=== PATIENT | female | born 1940 | race Caucasian/White ===

== ENCOUNTER 2017-05-01 10:49 | Inpatient (IN) | payer MEDICARE ==
[2017-05-01] MEDS ORDERED: Clindamycin/D5W 900 mg/50 ml Premix Bag ONE (12:18)
[2017-05-01 12:37] LABS: #Eosinphils 0.1 thou/uL (0.0-0.7); #Lymphocytes 1.7 thou/uL (1.20-3.40); #Monocytes 0.8 thou/uL (0.11-0.59); #Neutrophils 12.5 thou/uL (1.40-6.50); %Basophils 0.2 % (0.0-1.0); %Eosinophils 0.6 % (0.0-10.0); %Lymphocytes 11.1 % (21.0-51.0); %Monocytes 5.1 % (0.0-10.0); Hematocrit 29.9 % (36.0-47.0); Mean Platelet Volume 8.1 fL (7.4-10.4); Red Blood Cell (RBC) Count 3.18 mill/uL (4.20-5.40); White Blood Cell (WBC) Count 15.1 thou/uL (4.8-10.8)
[2017-05-01] MEDS ORDERED: Sodium Chloride 0.9% 1,000 ML IV SCH (13:00)
[2017-05-01] MEDS ORDERED: Acetaminophen 325 MG TAB PO PRN ×2 (13:00→16:19)
[2017-05-01] MEDS ORDERED: Ondansetron ODT 4 MG TAB SL PRN (13:00)
[2017-05-01] MEDS ORDERED: Ondansetron HCl/PF 4 MG/2 ML Vial IVP PRN ×2 (13:00→16:19)
[2017-05-01 13:02] LABS: ALT (SGPT) 14 U/L (8-55); AST (SGOT) 15 U/L (5-34); Alkaline Phosphatase 54 U/L (40-150); Anion Gap 13 mmol/L (10-20); BUN (Urea Nitrogen) 67 mg/dL (9.8-20.1); Bilirubin, Total 0.2 mg/dL (0.2-1.2); Calc. Creatinine Clearance 0 mL/min (70-130); Calcium 9.7 mg/dL (7.8-10.44); Carbon Dioxide 27 mmol/L (23-31); Chloride 100 mmol/L (98-107); Estimated GFR-MDRD 17; Globulin 3.2 g/dL (2.4-3.5); Lipase 40 U/L (8-78); Protein, Total 6.5 g/dL (6.0-8.3)
--- NOTE | 2017-05-01 13:11 | RAD ---
AP CHEST: History: 76-year-old with staph infection. FINDINGS: EKG leads are seen over the chest. Coronary arterial stents are seen. Calcification of the aorta is noted. The lungs are well aerated. No evidence of active intrathoracic disease seen. No evidence of effusions, pneumonia, or pneumothorax is seen. IMPRESSION: Unremarkable AP chest. POS: [facility]
[2017-05-01] MEDS ORDERED: Lidocaine 1% PF 5 ML VIAL ONE (13:30)
[2017-05-01 14:20] LABS: Bilirubin Negative (Negative); Glucose, Urine (Dipstick) Negative (Negative)
[2017-05-01 14:21] LABS: Blood, Urine Moderate (Negative); Ketone, Urine Negative (Negative); Nitrite Negative (Negative); Protein, Urine (Dipstick) Negative (Neg-Trace); Urobilinogen 0.2 mg/dL (0.2-1.0)
[2017-05-01 14:32] LABS: Bacteria/HPF None Seen HPF (None Seen); Hyaline Casts/LPF 0-3 HYALINE CAST LPF (0-3 Hyaline); Squamous Epithelial None Seen HPF (0-3); WBC/HPF 0-3 HPF (0-3)
--- NOTE | 2017-05-01 14:53 | HP ---
PRIMARY CARE PHYSICIAN: Dr. Suzanne Otero. REASON FOR ADMISSION: Sepsis, hypotension, buttock abscess. HISTORY OF PRESENT ILLNESS: A 76-year-old female who has underlying history of COPD, chronic respir atory failure on home oxygen, chronic systolic heart failure with last EF 15%-20%, who presented to the emergency room with complaint of pain in her buttock. The patient reports that she noticed swel ling in her buttock on the right side about a week ago. Initially, it was less tender and she ignor ed, but her pain kept getting worse day by day basis and it has gotten increased in size of a lemon and she was also feeling hot and feverish at home and that is why she decided to come to the emergen cy room for evaluation today. In emergency room today, patient had bedside I\T\D done and purulent material was drained. The ga ent was also having surrounding erythema and tenderness. The patient was having severe pain on the right buttock with erythema when she presented to the ER. Initially, the patient was hypotensive. Her lowest blood pressure in the emergency room was 81/37. She is afebrile. Patient denies any UTI symptoms. She denies any chest pain, palpitations, shortn ess of breath. Patient reports that she is chronically short of breath, but that has not changed. Patient reports that how this started she does not have any clue. She does not normally sit down in one place. Patient walks around with a walker. She does use oxygen all the time. She lives at [facility] by herself. In the emergency room, patient expressed her wish to be DNR when I discussed with he r about code status. When she cannot make decision, then her daughter and son can make decision who lives in [facility]. When she presented to emergency room, her pain in buttock was about 7/10 in intensity, but after I\T \D her pain reduced to 2/10. REVIEW OF SYSTEMS: The following complete review of systems was negative, unless otherwise mentione d in the HPI or below: Constitutional: Weight loss or gain, ability to conduct usual activities. Skin: Rash, itching. Eyes: Double vision, pain. ENT/Mouth: Nose bleeding, neck stiffness, pain, tenderness. Cardiovascular: Palpitations, dyspnea on exertion, orthopnea. Respiratory: Shortness of breath, wheezing, cough, hemoptysis, fever or night sweats. Gastrointestinal: Poor appetite, abdominal pain, heartburn, nausea, vomiting, constipation, or diar lora. Genitourinary: Urgency, frequency, dysuria, nocturia. Musculoskeletal: Pain, swelling. Neurologic/Psychiatric: Anxiety, depression. Allergy/Immunologic: Skin rash, bleeding tendency. Please see my HPI for pertinent positive and negative. All other review of systems reviewed and neg ative except as mentioned in the HPI. PAST MEDICAL HISTORY: Chronic respiratory failure on home oxygen, severe COPD, chronic systolic hea rt failure with EF 15% to 20% as per last echo, coronary artery disease with stent, history of hyper tension, history of pulmonary nodule, history of TIA, and senile dementia. PAST SURGICAL HISTORY: Cataract surgery, bilateral tubal ligation, cardiac catheterization with stacia nt, status post I\T\D for buttock abscess. PAST PSYCHIATRIC HISTORY: Reviewed and negative. SOCIAL HISTORY: Patient is an ex-smoker. She quit smoking more than 10 years ago. She denies any alcohol abuse. She denies any other illicit drug abuse. She lives at home alone by herself in [facility]. The patient's daughter and son lives around. She does have help at home who checks on her daily basis. FAMILY HISTORY: Hypertension and coronary artery disease runs among several family members. ALLERGIES: Patient is not tolerating PENICILLIN, ROCEPHIN and TRAMADOL. CURRENT HOME MEDICATIONS: This patient does not have any medication with her at this point when she presented to emergency room, so unable to verify her home medications, but based on our hospital re cord, the patient is on following medications: Ventolin HFA one puff q.4 hourly p.r.n., aspirin 325 mg p.o. daily, Lipitor 40 mg p.o. at bedtime, calcium with vitamin D 1 tablet p.o. daily, Coreg 6.2 5 mg p.o. b.i.d., Plavix 75 mg p.o. daily, Aricept 5 mg p.o. at bedtime, Advair 2 puffs inhalation b .i.d., folic acid 1 tablet daily, Lasix 20 mg p.o. daily, lisinopril 2.5 mg p.o. daily, Protonix 40 mg p.o. daily, Aldactone 25 mg p.o. daily, and Zanaflex 2 mg p.o. at bedtime. EMERGENCY ROOM COURSE: Patient is given vancomycin, clindamycin, and IV fluid. PHYSICAL EXAMINATION: VITAL SIGNS: Blood pressure lowest in the emergency room 81/37, pulse 70, respiratory rate 22, temp erature 97.7, saturation 98% on room air, weight 56.7 kilograms. GENERAL: Patient is currently alert, awake, no obvious acute distress. HEAD: Normocephalic, atraumatic. EYES: Pupils round, reactive to light. Extraocular muscle intact. ENT: Oropharynx within normal limits. Moist mucous membranes. No oral lesions. No pharyngeal glenn thema, no exudate. NECK: Supple. Range of motion is normal. No meningeal signs of irritation. LUNGS: Air entry reduced, but no rales, no wheeze. No accessory muscles of respiration in use. CARDIAC: S1, S2 regular. No significant murmur elicited, no gallop, no rub. ABDOMEN: Soft, bowel sounds present, nontender, nondistended. No organomegaly, no mass, no suprapu bic tenderness. No peritoneal sign. BACK: Examination unremarkable. No CVA tenderness. EXTREMITIES: Upper extremity passive movements of all joints are normal. Lower extremity, no obvio us edema noted. Good peripheral pulsation. SKIN: The patient does have multiple bruise on her skin and I also found furuncle with abscess in t he right gluteus with warm and surrounding tenderness. NEUROLOGIC: Patient is moving all four limbs, plantar bilateral flexor. No focal neurological defi cit noted. PSYCHIATRIC: Normal affect. IMAGING AND LABORATORY DATA: Chest x-ray based on my review, no acute cardiopulmonary process. CBC : WBC 15.1, hemoglobin 9.8, platelet 270 with a left shift. BMP: Sodium 134, potassium 5.9, chlor london 100, carbon dioxide 27, anion gap 13, BUN 67, creatinine 2.75, glucose 102, and calcium 9.7. LF T: AST 15, ALT 14, alkaline phosphatase 54, albumin 3.3, lipase 40. ASSESSMENT AND PLAN/IMPRESSION: 1. Sepsis with acute organ dysfunction. The patient does have leukocytosis with a left shift. She does have buttock abscess with cellulitis of buttock. The patient does have hypotension and at the same time, patient has renal failure. At this point, we are suspecting Staphylococcus infection. The patient will have clindamycin and vancomycin. The patient will be admitted in IMCU for close mo nitoring. 2. Hypotension. Patient's blood pressure is running on lower side. At this point, patient's blood pressure is moderate in the emergency room with IV fluid. We will give her cautious IV fluid to pr event any fluid overload. At this point, her x-ray does not show any fluid overload status and we w ill continue with IV fluid. If needed, we will consider vasopressor support. 3. Acute kidney failure, likely due to sepsis and volume depletion. She also has severe cardiomyop athy that also contributes to her cardiorenal syndrome. We will obtain a renal ultrasound. We will check urinalysis, urine sodium, creatinine and protein. We will consult Nephrology evaluation. 4. Hyperkalemia. We will monitor potassium. At this point, the patient is taking Aldactone; that medication as well as lisinopril will be kept on hold, we will repeat potassium again tomorrow. Nep hrology has already consulted. 5. Buttock abscess. This patient has predominantly right buttock abscess. That was I\T\D done in the emergency room. Wound care team will be consulted. Patient will be on vancomycin and clindamyc in. We will monitor clinical response. We will control her pain. 6. History of systolic heart failure. The patient currently appears to be euvolemic. Patient's la st echo was in 2013 and that is why we will repeat echocardiography during this admission to see eje ction fraction and other structural abnormality. This patient is not on any beta araseli medicine o r MANOJ inhibitor or ARB because of renal failure and hypotension. 7. Chronic obstructive pulmonary disease without any exacerbation. We will continue to treat with DuoNeb q.6 hourly and Dulera 2 puffs inhalation b.i.d. 8. Chronic respiratory failure with home oxygen. We will continue oxygen to keep saturation above 92%. 9. Coronary artery disease with stent. We will continue with aspirin 81 mg p.o. daily and Plavix 7 5 mg p.o. daily. 10. Alzheimer's dementia. We will continue Aricept 5 mg p.o. at bedtime. 11. Dyslipidemia. We will continue Lipitor 40 mg p.o. at bedtime. 12. Anemia, normocytic normochromic. We will continue folic acid 1 mg p.o. daily, vitamin B12 1000 mcg p.o. daily and ferrous sulfate 325 mg p.o. daily. 13. Protein calorie malnutrition. The patient will be given supplements, Ensure b.i.d. and Gume b .i.d. to promote the wound healing. 14. Deep venous thrombosis prophylaxis, Lovenox 30 mg subcutaneously daily. 15. Gastrointestinal prophylaxis, Pepcid 20 mg p.o. daily. CODE STATUS: I spoke with the patient who can make decision by herself and she clearcutly said to morenita zuñiga that she does not want any kind of heroic measure including intubation and CPR in case of cardiopu lmonary arrest, but she wanted to be treated medically and she requested DNR and that is ordered in the computer. Disposition plan based on clinical course. This patient may need PT, OT before discharge, home vers us intermediate home placement. If this patient remains stable in the IMCU overnight, then we wi ll consider transferring her to medical stress telemetry floor based on clinical course.
[2017-05-01 15:28] VITALS: BMI 23.0
[2017-05-01] MEDS ORDERED: Ondansetron ODT 4 MG TAB PO PRN (16:19)
[2017-05-01] MEDS ORDERED: Diabetic Tussin 200 MG/10 ML UDCUP PO PRN (16:19)
[2017-05-01] MEDS ORDERED: Artificial Tears 18 DROP/0.9 ML EA EYE PRN (16:19)
[2017-05-01] MEDS ORDERED: Mag-Al 1200 mg/1200 mg/30 ML UDCUP PO PRN (16:19)
[2017-05-01] MEDS ORDERED: Eucerin (Mineral Oil/Petrolatum,White) 30 gm Jar TOP PRN (16:19)
[2017-05-01] MEDS ORDERED: Sodium Chloride 0.65% Nasal 44 ML BOT EA NARE PRN (16:19)
[2017-05-01] MEDS ORDERED: Milk Of Magnesia 30 ML UDCUP PO PRN (16:19)
[2017-05-01] MEDS ORDERED: Loperamide HCl 2 MG CAP PO PRN (16:19)
[2017-05-01] MEDS ORDERED: Senokot 8.6 MG TAB PO PRN (16:19)
[2017-05-01] MEDS ORDERED: VANCOMYCIN IVPB PRN (16:19)
[2017-05-01 18:32] LABS: Sodium, Urine 112 mmol/L (Not Available)
[2017-05-01] MEDS: Mometasone/Formoterol 120 PUFF INHALER INH SCH (19:15)
--- NOTE | 2017-05-01 19:16 | ULT ---
BILATERAL RENAL ULTRASOUND: 05/01/17 COMPARISON: None. HISTORY: Acute kidney injury. TECHNIQUE: Multiplanar alexis scale and color doppler images were obtained in a bilateral renal ultrasound. FINDINGS: There appears to be cortical thinning on the right. There may be mild cortical thinning on the left. There is a small nonshadowing echogenic focus in the left kidney measuring 6 mm in greatest dimensi on which could potentially represent a nonobstructing calcification. There is no evidence of hydrone phrosis. The kidneys measure 11.1 and 10.1 cm in length on the right and left, respectively. Limited visualization of the urinary bladder is unremarkable. IMPRESSION: 1. Cortical thinning may be secondary to chronic renal disease. 2. A possible nonshadowing left renal calcification. POS: [facility]
[2017-05-01] MEDS: Sodium Chloride 0.9% 1,000 ML IV SCH (19:31)
[2017-05-01] MEDS: Clindamycin/D5W 600 MG in Premix Bag 1 BAG IVPB SCH (19:32)
[2017-05-01] MEDS: Atorvastatin Calcium 40 MG TAB PO SCH (22:13)
[2017-05-02] MEDS: Clindamycin/D5W 600 MG in Premix Bag 1 BAG IVPB SCH ×4 (01:27→18:11)
[2017-05-02 06:22] LABS: #Eosinphils 0.1 thou/uL (0.0-0.7); #Lymphocytes 1.3 thou/uL (1.20-3.40); #Monocytes 0.4 thou/uL (0.11-0.59); #Neutrophils 10.1 thou/uL (1.40-6.50); %Eosinophils 0.6 % (0.0-10.0); %Lymphocytes 11.3 % (21.0-51.0); %Monocytes 3.3 % (0.0-10.0); Hematocrit 29.3 % (36.0-47.0); Mean Platelet Volume 8.5 fL (7.4-10.4); Red Blood Cell (RBC) Count 3.15 mill/uL (4.20-5.40); White Blood Cell (WBC) Count 11.9 thou/uL (4.8-10.8)
[2017-05-02 06:50] LABS: ALT (SGPT) 15 U/L (8-55); AST (SGOT) 18 U/L (5-34); Alkaline Phosphatase 54 U/L (40-150); Anion Gap 17 mmol/L (10-20); BUN (Urea Nitrogen) 54 mg/dL (9.8-20.1); Bilirubin, Total 0.3 mg/dL (0.2-1.2); Calc. Creatinine Clearance 24 mL/min (70-130); Calcium 9.3 mg/dL (7.8-10.44); Carbon Dioxide 19 mmol/L (23-31); Chloride 104 mmol/L (98-107); Estimated GFR-MDRD 26; Globulin 3.1 g/dL (2.4-3.5); Protein, Total 6.5 g/dL (6.0-8.3)
--- NOTE | 2017-05-02 06:51 | CON ---
DATE OF CONSULTATION: 05/01/2017 NEPHROLOGY CONSULTATION CONSULTING PHYSICIAN: Dr. Mcdonald. REASON FOR CONSULTATION: Sepsis, hypotension, and acute kidney injury. REASON FOR ADMISSION: Buttock abscess and pain. HISTORY OF PRESENT ILLNESS: This is a 76-year-old female with history of COPD, CHF, who came to the hospital with the above symptoms and found to have acute kidney injury with elevated creatinine of 2.75, last creatinine was 1.4 on 04/03/2017. Patient is complaining of back pain. She was hypotens elias and was given fluids. She does have congestive heart failure with poor EF too. No fever or chi lls. No shortness of breath, chest pain, or palpitations. No nausea or vomiting reported. PAST MEDICAL HISTORY: Positive for CHF, COPD, pulmonary nodule, TIA, dementia, hypotension. PAST SURGICAL HISTORY: Cataract surgery, tubal ligation, cardiac catheterization, and I\T\D. MEDICATIONS: Include Ventolin, aspirin, Lipitor, calcium, vitamin D, Coreg, Plavix, Aricept, Advair , folic acid, Lasix, lisinopril, Protonix, Aldactone, and Zanaflex. ALLERGIES: To PENICILLIN, ROCEPHIN, and TRAMADOL. FAMILY HISTORY: No history of any kidney disease. SOCIAL HISTORY: She is an ex-smoker. No alcohol, illicit drug abuse reported. REVIEW OF SYSTEMS: The following complete review of systems was negative, unless otherwise mentione d in the HPI or below: Constitutional: Weight loss or gain, ability to conduct usual activities. Skin: Rash, itching. Eyes: Double vision, pain. ENT/Mouth: Nose bleeding, neck stiffness, pain, tenderness. Cardiovascular: Palpitations, dyspnea on exertion, orthopnea. Respiratory: Shortness of breath, wheezing, cough, hemoptysis, fever or night sweats. Gastrointestinal: Poor appetite, abdominal pain, heartburn, nausea, vomiting, constipation, or diar lora. Genitourinary: Urgency, frequency, dysuria, nocturia. Musculoskeletal: Pain, swelling. Neurologic/Psychiatric: Anxiety, depression. Allergy/Immunologic: Skin rash, bleeding tendency. PHYSICAL EXAMINATION: GENERAL: This is a well-built elderly female, in no apparent distress. VITAL SIGNS: Temperature 98.0, pulse 72, respiratory rate 18, blood pressure 100/41. HEENT: Atraumatic, normocephalic. Oral mucosa is dry. NECK: Supple, no masses. CARDIOVASCULAR: S1 and S2 heard. Rate and rhythm regular. RESPIRATORY: Clear. GASTROINTESTINAL: Abdomen is soft. MUSCULOSKELETAL: No tenderness. No edema. DERMATOLOGIC: skin rash. NEUROLOGIC: Alert and awake. PSYCHIATRIC: Mood and affect normal. LABORATORY DATA: Hemoglobin is 9.8. Potassium is 5.9, BUN 67, creatinine is 2.7. ASSESSMENT AND PLAN: 1. Acute kidney injury most likely from sepsis versus volume depletion and diuretics and medication s. Agree with holding the nephrotoxic medications including diuretics. 2. Hyperkalemia, most likely from medications and limit potassium in the diet and continue hydratio n as tolerated. Patient does have poor EF. 3. Anemia, rule out bleed. 4. Edema, uncontrolled. 5. Hypotension, stable. 6. Continue supportive care, avoid nephrotoxins. No acute indication for dialysis. Renally dose a ll the medicines and we will follow. I will recommend changing Lovenox to heparin if tolerated and monitor vancomycin level closely and avoid the dose if level is more than 20. We will follow. Thank you for the consult.
[2017-05-02] MEDS: Mometasone/Formoterol 120 PUFF INHALER INH SCH ×2 (07:35→18:20)
[2017-05-02] MEDS: Ferrous Sulfate 325 MG TAB PO SCH (09:15)
[2017-05-02] MEDS: Famotidine 20 MG TAB PO SCH (09:16)
[2017-05-02] MEDS: Folic Acid 1 MG TAB PO SCH (09:16)
[2017-05-02] MEDS: Clopidogrel Bisulfate 75 MG TAB PO SCH (09:16)
[2017-05-02] MEDS: Cyanocobalamin (Vitamin B-12) 1,000 MCG TAB PO SCH (09:16)
[2017-05-02] MEDS: Enoxaparin Sodium 30 MG/0.3 ML SYRINGE SC SCH (09:18)
[2017-05-02] MEDS ORDERED: Furosemide 20 MG/2 ML VIAL SLOW IVP SCH (09:30)
[2017-05-02] MEDS: Sodium Chloride 0.9% 1,000 ML IV SCH ×3 (10:34→16:10)
--- NOTE | 2017-05-02 12:03 | PDOC.PN ---
- Subjective Encounter Start Date: 05/02/17 Encounter Start Time: 08:30 Pt seen and examined on rounds earlier this morning. Chart reviewed in its entriety. This si my first visit with this patient. NO F/C, no N/V/D/C, no CP or SOb, breeathing at baseline admitted overnight for sepsis, buttock asbess on left I&D's. Has anothe jennifer the right, but not opened. Cultures growing staph, abscess and blood. 1/2 with s. aureus, other BCx with likely CoNS. 10 point ROS perofrme dnad neg for all except as above. Buttock abscess examined in the presence of a female RN dictionary editor - Objective Resuscitation Status: Resuscitation Status DNR:Do Not Resuscitate MAR Reviewed: Yes Vital Signs & Weight: Vital Signs (12 hours) Temp Pulse Resp BP Pulse Ox 05/02/17 08:02 97.7 F 89 16 97 05/02/17 07:34 89 16 97 05/02/17 07:07 97.6 F 84 20 121/54 L 100 05/02/17 04:00 97.7 F 76 20 101/42 L 100 05/02/17 01:17 100 05/02/17 01:16 100 Weight Weight 130 lb 1.6 oz I&O: 05/01/17 05/02/17 05/03/17 06:59 06:59 06:59 Intake Total 450 Output Total 1000 Balance -550 Result Diagrams: 05/02/17 05:17 05/02/17 05:17 Radiology Reviewed by me: Yes EKG Reviewed by me: Yes Phys Exam - Physical Examination Constitutional: NAD HEENT: PERRLA, moist MMs, sclera anicteric, oral pharynx no lesions Neck: no nodes, no JVD, supple, full ROM Respiratory: no wheezing, no rales, no rhonchi, clear to auscultation bilateral Cardiovascular: RRR, no significant murmur, no rub Gastrointestinal: soft, non-tender, no distention, positive bowel sounds Musculoskeletal: pulses present, edema present Neurological: non-focal, normal sensation, moves all 4 limbs Lymphatic: no nodes Psychiatric: normal affect, A&O x 3 Skin: no rash, normal turgor, cap refill <2 seconds Deviation from normal: left buttock abscess with purplish discoloration 1.5cm in radius at I&D st -: Right buttock wuth unstageable ulcer, ? abscess Dx/Plan (1) Pressure ulcer Code(s): L89.90 - PRESSURE ULCER OF UNSPECIFIED SITE, UNSPECIFIED STAGE Status : Acute Qualifiers: Pressure ulcer location: buttock Pressure ulcer stage: unstageable Laterality: right Qualified Code(s): L89.310 - Pressure ulcer of right buttock , unstageable Comment: warm compreses, watch for drainage, WC nurse consulted (2) MSSA (methicillin susceptible Staphylococcus aureus) septicemia Code(s): A41.01 - SEPSIS DUE TO METHICILLIN SUSCEPTIBLE STAPHYLOCOCCUS AUREUS Status: Acute Comment: Abscess and BCx 1/2 sets positive. CCM with Vanc/ clinda for now (3) MSSA (methicillin susceptible Staphylococcus aureus) infection Code(s): A49.01 - METHICILLIN SUSCEP STAPH INFECTION, UNSP SITE Status: Acute (4) Left buttock abscess Code(s): L02.31 - CUTANEOUS ABSCESS OF BUTTOCK Status: Acute Comment: S/P I& D in ER. awaiting final culture and sensitivities (5) Respiratory failure Code(s): J96.90 - RESPIRATORY FAILURE, UNSP, UNSP W HYPOXIA OR HYPERCAPNIA Status: Acute Qualifiers: Chronicity: acute on chronic Respiratory failure complication: hypoxia Qualified Code(s): J96.21 - Acute and chronic respiratory failure with hypoxia (6) HTN (hypertension) Code(s): I10 - ESSENTIAL (PRIMARY) HYPERTENSION Status: Chronic Qualifiers: Hypertension type: essential hypertension Qualified Code(s): I10 - Essential (primary) hypertension (7) Hyperlipidemia Code(s): E78.5 - HYPERLIPIDEMIA, UNSPECIFIED Status: Chronic Qualifiers: Hyperlipidemia type: unspecified Qualified Code(s): E78.5 - Hyperlipidemia , unspecified (8) CAD (coronary artery disease) Code(s): I25.10 - ATHSCL HEART DISEASE OF [place] CORONARY ARTERY W/O ANG PCTRS Status: Chronic Qualifiers: Coronary Disease-Associated Artery/Lesion type: unspecified vessel or lesion type [place] vs. transplanted heart: [place] heart Associated angina: without angina Qualified Code(s): I25.10 - Atherosclerotic heart disease of [place] coronary artery without angina pectoris (9) Chronic respiratory failure with hypoxia Code(s): J96.11 - CHRONIC RESPIRATORY FAILURE WITH HYPOXIA Status: Chronic (10) Chronic systolic (congestive) heart failure Code(s): I50.22 - CHRONIC SYSTOLIC (CONGESTIVE) HEART FAILURE Status: Chronic Comment: compensated, EF 15-20% - Plan cont current plan of care, continue antibiotics, PT/OT * .
--- NOTE | 2017-05-02 14:07 | PQF ---
Date: 05-02-17 ATTN: DR. ALEXYS BUSH Please layne a box (or boxes) below if a more specific term indicating a diagnosis and/or acuity level for this condition can be identified. Please exercise your independent, professional judgment in responding to the clarification form. Clinical indicators are provided on the bottom of this form for your review. Thank you. [ x ] Protein Calorie Malnutrition: [ x ] Mild [ ] Moderate [ ] Severe [ ] Unspecified [ ] Other Malnutrition (please specify) __ [ ] No diagnosis of Malnutrition [ ] Does not apply to this patient [ ] Unable to determine [ ] Other diagnosis: [ ] Present on Admission (POA); [ ] Yes [ ] No [ ] Unable to determine BMI Less than 19 Under weight 19 - 24.9 Healthy 25.0 - 29.9 Slightly Overweight 30.0 - 34.9 Obese 35.0 - 39.9 Severely Obese 40.0 and Over Morbidly Obese Values Commonly Used to Grade the Severity of Protein-Energy Malnutrition Measurement Normal Mild Moderate Severe Normal weight (%) 47873 8590 7585 < 75 Body mass index 1924 1818.9 1617.9 < 16 Serum albumin (g/dL) 3.55.0 3.13.4 2.43.0 < 2.4 Serum transferrin (mg/dL) 696342 363799 850846 < 150 Total lymphocyte count (per mm3) [id number] [id number] 800 1500 < 800 Delayed hypersensitivity index 2 2 1 0 From The Merck Manual of Diagnosis and Therapy, Edition 18, edited by Layne Putnam. Copyright 2006 by [employer], [place]. Available at : http://www.merck.com/mmpe/sec01/ch002/xs651x.html. Accessed 02/26/07. The following CLINICAL INDICATORS - Signs / Symptoms are documented in the medical record: Documentation reflects BMI of 23.0 H&P: PROTEIN CALORIE MALNUTRITION PN DR. ALEXYS BUSH ON 05-01-17: ACUTE PRESSURE ULCER OF RIGHT BUTTOCK, UNSTAGEABLE RISKS: H&P: HX OF SEVERE COPD, SENILE DEMENTIA, ALZHEIMER'S PN DR. ALEXYS BUSH ON 05-01-17: ACUTE PRESSURE ULCER OF RIGHT BUTTOCK, UNSTAGEABLE TREATMENT: HEART HEALTHY DIET, SUPLENA DAILY, MARY RENAL BID (This form is maintained as a part of the permanent medical record) 2014 [employer] All Rights Reserved JUAN [email or web address] Office: [phone] [facility] CENTERFrancisco Javier
[2017-05-02 14:17] LABS: #Lymphocytes 0.7 thou/uL (1.20-3.40); #Monocytes 0.2 thou/uL (0.11-0.59); #Neutrophils 7.9 thou/uL (1.40-6.50); %Basophils 0.2 % (0.0-1.0); %Eosinophils 0.4 % (0.0-10.0); %Lymphocytes 7.3 % (21.0-51.0); %Monocytes 2.5 % (0.0-10.0); Hematocrit 25.7 % (36.0-47.0); Mean Platelet Volume 8.1 fL (7.4-10.4); Red Blood Cell (RBC) Count 2.73 mill/uL (4.20-5.40); White Blood Cell (WBC) Count 8.8 thou/uL (4.8-10.8)
--- NOTE | 2017-05-02 14:34 | CON ---
DATE OF CONSULTATION: 05/02/2017 REASON FOR CONSULTATION: Coronary artery disease, history of heart failure, and sepsis. HISTORY OF PRESENT ILLNESS: Ms. Sarah Rose is a very pleasant 76-year-old woman with COPD, histo ry of congestive heart failure, history of coronary artery disease, admitted with sepsis and renal f ailure. Ms. Rose is 76 years of age; from a cardiac standpoint, she presented with difficulty breathing in 2013, looked like a lot of the problem with COPD, but it looked like there may have been a cardiac component as well. Echocardiogram showed severely depressed left ventricular function. She underwe nt cardiac catheterization and underwent stent implantation in the right coronary artery. She had a stent placed in the right coronary artery. Later that evening, she had some recurrent discomfort, took her back to the laboratory animal facility supervisor, look like with an edge dissection, and another stent was placed. She has done well from a cardiac standpoint since then. The stent was a 3.5 x32 stent and other 3.5 x2 0 stent post-dilated to 4 mm and later a 4.0 x 12 stent was overlapped. The patient's ejection fraction improved dramatically following that. Recently, she had been having worsening shortness of breath, and we are recommending that she have an outpatient cardiac catheter ization to reassess the patency of the stent. However, she was admitted to the hospital on this occ asion with buttocks abscess and sepsis as outlined in the chart. The patient did not have chest pain. She did feel short of breath. The patient is also hypotensive and given fluid. PAST MEDICAL HISTORY: 1. History of congestive heart failure, but later the ejection fraction improved. 2. COPD. 3. Coronary artery disease. PAST SURGICAL HISTORY: Cataract surgery, stent implantation in the right coronary artery in 2013. MEDICATIONS PRIOR TO ADMISSION: 1. Low dose Coreg. 2. Plavix. 3. Aspirin. 4. Protonix. 5. Aldactone. FAMILY HISTORY: Negative for coronary disease at young age. Negative for kidney disease. ALLERGIES: Allergic to PENICILLIN, ROCEPHIN, and TRAMADOL. SOCIAL HISTORY: The patient is an ex-smoker, does not smoke currently. REVIEW OF SYSTEMS: CONSTITUTIONAL: Positive for weakness, fatigue, and fever. VISION: No changes. HEARING: No changes. PULMONARY: No cough or wheezing. Positive for shortness of breath. CARDIAC: No chest pain. GASTROINTESTINAL: No nausea, vomiting, or diarrhea. SKIN: No rashes. NEUROLOGIC: No unilateral weakness or numbness. PSYCHIATRIC: No unusual depression or anxiety. HEMATOLOGIC: No unusual bruising. GENITOURINARY: No burning with urination. PHYSICAL EXAMINATION: GENERAL: This is a pleasant, frail-appearing elderly woman. She is alert and oriented. VITAL SIGNS: Blood pressure 101/42, pulse is in the 90s and regular. EYES: Sclerae nonicteric. MOUTH: Mucous membranes moist. NECK: Supple, no lymphadenopathy. LUNGS: No wheezing, rales, or rhonchi. CARDIOVASCULAR: Normal S1, normal S2. I do not hear murmur, rub, or gallop. ABDOMEN: Soft, nontender, no hepatosplenomegaly. EXTREMITIES: Warm, dry, no clubbing or cyanosis, no edema. SKIN: Warm and dry. I did not reexamine, but the buttocks abscess details that were documented in the chart. LABORATORY AND X-RAY FINDINGS: Hemoglobin is 9.4. Potassium 6.4. Creatinine 1.88, it was 2.75. EKG, sinus rhythm. Troponin level is not yet drawn. ASSESSMENT: 1. History of congestive heart failure, later improved. 2. Sepsis. 3. Coronary artery disease. 4. Renal failure. 5. Hyperkalemia. 6. Anemia. PLAN: 1. Check troponin level. 2. Check echo. 3. Coreg with hypotension. 4. Enoxaparin. 5. We will follow with you.
[2017-05-02 14:35] LABS: Anion Gap 15 mmol/L (10-20); BUN (Urea Nitrogen) 47 mg/dL (9.8-20.1); Calc. Creatinine Clearance 24 mL/min (70-130); Calcium 8.5 mg/dL (7.8-10.44); Carbon Dioxide 23 mmol/L (23-31); Chloride 102 mmol/L (98-107); Estimated GFR-MDRD 25
--- NOTE | 2017-05-02 18:29 | CON ---
DATE OF CONSULTATION: 05/02/2017 SERVICE: Pulmonary Medicine. REASON FOR CONSULTATION: IMCU patient. HISTORY OF PRESENT ILLNESS: The patient is a 76-year-old white female with past medical history sig nificant for nothing. She presented to the hospital with some abscesses in her backside and severe sepsis. At that time when she presented, she had no shortness of breath, fevers, chills, or cough. She uses Symbicort twice daily and has very rare use for albuterol which she uses on a p.r.n. basis , less than 1-2 times per week. She uses these things for COPD. That being said, this did not brin g her into the hospital. She had some marginal blood pressures and evidence of acute end organ grace ge. As such, she was watched in the [facility]. She has had a significant improvement in her symptoms si nce being here. She feels much stronger. Otherwise, she is returning to her usual state of health. PAST MEDICAL HISTORY: 1. COPD. 2. Chronic hypoxic respiratory failure on home oxygen. 3. Chronic systolic heart failure (15% ejection fraction). 4. Coronary artery disease. 5. Hypertension. 6. Pulmonary nodule. 7. History of TIA. 8. Dementia. PAST SURGICAL HISTORY: 1. Cataract surgery. 2. Bilateral tubal ligation. 3. Cardiac catheterization with PCI. 4. I\T\D of abscess on the buttock. SOCIAL HISTORY: She has a greater than [id number] history of smoking, but quit over 10 years ago. She denies any alcohol or illicit drug use. She has no exposure to chemicals, dust asbestos or tu berculosis. She lives at home by herself in [place]. She is checked on a daily basis by family who lives close by. FAMILY HISTORY: Noncontributory. ALLERGIES: PENICILLIN, ROCEPHIN, TRAMADOL. MEDICATIONS: List of her inpatient medications were reviewed. No specific updates were made at thi s time. REVIEW OF SYSTEMS: General, head, eyes, nose, throat, cardiovascular, respiratory, GI, , musculos keletal, neurologic and skin is negative except as mentioned in the HPI. PHYSICAL EXAMINATION: VITAL SIGNS: Afebrile, pulse 95, blood pressure 95/56, respirations 20, saturation 97% on 2 liters nasal cannula. GENERAL: The patient is awake, alert, in no apparent distress. LUNGS: Excellent air entry. There is minimally prolonged expiratory phase with a very small amount of polyphonic wheezing. I do not appreciate any crackles or rhonchi. HEART: Normal rate, regular. ABDOMEN: Soft, nontender, nondistended, bowel sounds positive. MUSCULOSKELETAL: No cyanosis or clubbing. There is no pitting in the bilateral lower extremities. NEUROLOGIC: Grossly nonfocal. LABORATORY DATA: WBC 8.8, hemoglobin 8.3, platelets 237,000. Neutrophil count is 90%. Creatinine is down trending from 2.75-1.93. BUN 47. Potassium 5.3 and down trending. Basic metabolic profile is otherwise unremarkable. Liver function studies are normal. Cortisol is 7.6, but of note, this is a random level and not a first thing in the morning draw. Lactate was unremarkable. Urinalysis is negative. Sacral decubitus ulcer is growing Staph aureus. She has 2 blood cultures that are bot h positive. One is for gram positive cocci, the other for coag negative staph. Urine clean catch i s negative to date. ASSESSMENT: 1. Severe sepsis secondary to Staphylococcus aureus bacteremia. 2. Abscess of the buttock, status post incision and drainage. 3. Chronic obstructive pulmonary disease without current exacerbation. PLAN: The patient will continue her antibiotics as directed by Primary Service. We will make certa in that we continue her scheduled Symbicort (Dulera to be used while in hospital as it is on our for mckayla) with p.r.n. nebulized medications. Dr. Dunn has been notified the patient is here and will a ssume care in the morning. Steroids will be deescalated as she has no acute respiratory component t o her presentation.
[2017-05-02] MEDS: Atorvastatin Calcium 40 MG TAB PO SCH (20:53)
--- NOTE | 2017-05-02 21:47 | PRG ---
DATE OF SERVICE: 05/02/2017 SUBJECTIVE: Patient was seen and examined at bedside and overnight events noted. Patient denies any shortness of breath or chest pain or palpitation. No history of nausea or vomiting or diarrhea or fever or chills or cramps. OBJECTIVE: GENERAL: This is a well-built elderly female, in no apparent distress. VITAL SIGNS: Temperature 98.3, pulse 78 RR 18 . HEENT: Atraumatic, normocephalic. Oral mucosa is moist. NECK: Supple. CARDIOVASCULAR: S1, S2 heard. Rate and rhythm regular. RESPIRATORY: Clear to auscultation. GASTROINTESTINAL: Abdomen is soft. MUSCULOSKELETAL: No tenderness, no edema. DERMATOLOGIC: No skin rash. NEUROLOGIC: Alert and awake and oriented x3. No focal neurologic deficits. Moving all the extremities. PSYCHIATRIC: Mood and affect normal. LABORATORY DATA: Potassium is 5.3 from 6.4 this morning, BUN is 47, creatinine is 1.9, hemoglobin is 8.3. ASSESSMENT AND PLAN: 1. Acute kidney injury. Continue supportive care. Patient was given diuretics this morning. 2. Hyperkalemia. Had diuresis this morning and potassium level is better. Limit potassium in the diet. Recommend renal diet. 3. Anemia, rule out bleed. 4. Edema, controlled. 5. Hypertension. 6. Hyponatremia, mild. 7. Continue antibiotics and supportive care. The patient was given one dose of furosemide. We would recommend changing Lovenox to heparin given the acute kidney injury. Renal dose all the medicines. Monitor vancomycin level. We will follow. Hold vancomycin level if level is more than 20. MTDD
[2017-05-03] MEDS: Clindamycin/D5W 600 MG in Premix Bag 1 BAG IVPB SCH ×2 (00:36→05:28)
[2017-05-03] MEDS: Sodium Chloride 0.9% 1,000 ML IV SCH ×4 (00:59→19:00)
[2017-05-03 06:26] LABS: #Lymphocytes 1.5 thou/uL (1.20-3.40); #Monocytes 1.1 thou/uL (0.11-0.59); #Neutrophils 9.9 thou/uL (1.40-6.50); %Basophils 0.1 % (0.0-1.0); %Eosinophils 0.3 % (0.0-10.0); %Lymphocytes 11.9 % (21.0-51.0); %Monocytes 8.6 % (0.0-10.0); Hematocrit 25.7 % (36.0-47.0); Mean Platelet Volume 7.9 fL (7.4-10.4); Red Blood Cell (RBC) Count 2.74 mill/uL (4.20-5.40); White Blood Cell (WBC) Count 12.6 thou/uL (4.8-10.8)
[2017-05-03 06:34] LABS: Anion Gap 12 mmol/L (10-20); BUN (Urea Nitrogen) 37 mg/dL (9.8-20.1); Calc. Creatinine Clearance 35 mL/min (70-130); Calcium 8.4 mg/dL (7.8-10.44); Carbon Dioxide 24 mmol/L (23-31); Chloride 107 mmol/L (98-107); Estimated GFR-MDRD 39; Iron 120 ug/dL (50-170); Magnesium 1.6 mg/dL (1.6-2.6)
[2017-05-03] MEDS: Mometasone/Formoterol 120 PUFF INHALER INH SCH ×2 (07:58→18:35)
--- NOTE | 2017-05-03 08:30 | PRG ---
DATE OF SERVICE: 05/03/2017 Ms. Rose is doing much better today. She feels much better. PHYSICAL EXAMINATION: VITAL SIGNS: Her blood pressure 119/57, pulse is now in the 80s, it is sinus. LUNGS: Clear. CARDIAC: Normal S1, S2. ABDOMEN: Soft, nontender. EXTREMITIES: No edema. ASSESSMENT: 1. Septic syndrome, improved, related to buttock abscess. 2. Anemia. She is not iron deficient. 3. Renal failure, improved. PLAN: 1. She is on Aspirin 81 mg a day. 2. Plavix 75 mg a day. 3. Enoxaparin 30 mg a day. 4. Intravenous antibiotics. 5. Atorvastatin. 6. From a cardiac standpoint, she is stable with Hep-Lock IV with the present bag in. At some poin t would like to do heart catheterization. Will bring her back as an outpatient to do that. I need to let her stabilize and the kidney function stabilizes prior to that procedure.
[2017-05-03] MEDS: Folic Acid 1 MG TAB PO SCH (09:26)
[2017-05-03] MEDS: Ferrous Sulfate 325 MG TAB PO SCH (09:26)
[2017-05-03] MEDS: Famotidine 20 MG TAB PO SCH (09:26)
[2017-05-03] MEDS: Clopidogrel Bisulfate 75 MG TAB PO SCH (09:26)
[2017-05-03] MEDS: Cyanocobalamin (Vitamin B-12) 1,000 MCG TAB PO SCH (09:26)
[2017-05-03] MEDS: Enoxaparin Sodium 30 MG/0.3 ML SYRINGE SC SCH (09:27)
--- NOTE | 2017-05-03 11:40 | PRG ---
DATE OF SERVICE: 05/03/2017 Sarah Rose's events have been reviewed. I met with her family. Apparently, Ms. Rose has been up in a chair or bedridden and has been very inactive the last 3 months. Her dementia clinically campos s been progressive, according to the daughter. PHYSICAL EXAMINATION: VITAL SIGNS: She is afebrile, heart rate is 89, respiratory rate is 18, oximetry is 100% on 2 liter s, blood pressure 130/46. LUNGS: Clear. HEART: Regular rhythm. ABDOMEN: Soft. Cultures have been reviewed. IMPRESSION: Wound grew methicillin-resistant Staphylococcus aureus. Urine culture is negative. On e blood culture is gram positive cocci and another blood culture is coag negative Staph. Hold her repeat blood cultures. These need to be done peripherally. I have consulted Infectious Landy garcia. Her COPD appears stable.
--- NOTE | 2017-05-03 11:54 | PRG ---
DATE OF SERVICE: 05/03/2017 SUBJECTIVE: Patient was seen and examined at bedside and overnight events noted. Patient denies an y shortness of breath or chest pain or palpitation. No history of nausea or vomiting or diarrhea or fever or chills or cramps. OBJECTIVE: GENERAL: This is a well-built male, in no acute distress. VITAL SIGNS: Temperature 98.8, pulse 89, respiratory rate 18, blood pressure 130/46. HEENT: Atraumatic, normocephalic, oral mucosa is moist. NECK: Supple. CARDIOVASCULAR: S1, S2 heard, rate and rhythm regular. RESPIRATORY: Clear to auscultation. GASTROINTESTINAL: Abdomen is soft. MUSCULOSKELETAL: No tenderness, no edema. DERMATOLOGIC: No skin rash. NEUROLOGIC: Alert and awake and oriented x3, no focal neurologic deficits. Moving all the extremit ies. PSYCHIATRIC: Mood and affect normal. LABORATORY DATA: Potassium is 4.0, BUN is 37, and creatinine is 1.3. ASSESSMENT AND PLAN: 1. Acute kidney injury, much better. 2. Hyperkalemia, better. Limit potassium. 3. Anemia. 4. Edema, controlled. 5. Hypertension, stable. 6. Avoid nephrotoxins. We will follow and limit potassium in the diet.
--- NOTE | 2017-05-03 12:17 | PDOC.PN ---
- Subjective Encounter Start Date: 05/03/17 Encounter Start Time: 11:45 Subjective: Expresses no complaint. - Objective Resuscitation Status: Resuscitation Status DNR:Do Not Resuscitate Vital Signs & Weight: Vital Signs (12 hours) Temp Pulse Resp BP Pulse Ox 05/03/17 11:44 102 H 20 130/63 05/03/17 08:11 98.2 F 89 18 99 05/03/17 08:00 98.2 F 89 18 130/46 L 100 05/03/17 07:58 86 16 97 05/03/17 04:00 98.5 F 99 18 119/57 L 94 L Weight Admit Weight 130 lb 1.6 oz Weight 127 lb 12.8 oz I&O: 05/02/17 05/03/17 05/04/17 06:59 06:59 06:59 Intake Total 450 3540 Output Total 1000 1875 Balance -550 1665 Result Diagrams: 05/03/17 05:17 05/03/17 05:17 Phys Exam - Physical Examination HEENT: sclera anicteric Neck: no JVD Respiratory: no rales Cardiovascular: RRR Gastrointestinal: soft, non-tender, no distention Musculoskeletal: edema present Neurological: moves all 4 limbs Dx/Plan (1) Left buttock abscess Code(s): L02.31 - CUTANEOUS ABSCESS OF BUTTOCK Status: Acute Comment: S/P I& D , on antibiotics. (2) Mild protein-calorie malnutrition Code(s): E44.1 - MILD PROTEIN-CALORIE MALNUTRITION Status: Acute (3) Pressure ulcer Code(s): L89.90 - PRESSURE ULCER OF UNSPECIFIED SITE, UNSPECIFIED STAGE Status : Acute Qualifiers: Pressure ulcer location: buttock Pressure ulcer stage: unstageable Laterality: right Qualified Code(s): L89.310 - Pressure ulcer of right buttock , unstageable Comment: warm compreses, watch for drainage, nurse consulted (4) Respiratory failure Code(s): J96.90 - RESPIRATORY FAILURE, UNSP, UNSP W HYPOXIA OR HYPERCAPNIA Status: Acute Qualifiers: Chronicity: acute on chronic Respiratory failure complication: hypoxia Qualified Code(s): J96.21 - Acute and chronic respiratory failure with hypoxia Comment: Now at baseline. Acute respiratory failure resolved. (5) CAD (coronary artery disease) Code(s): I25.10 - ATHSCL HEART DISEASE OF [place] CORONARY ARTERY W/O ANG PCTRS Status: Chronic Qualifiers: Coronary Disease-Associated Artery/Lesion type: unspecified vessel or lesion type [place] vs. transplanted heart: [place] heart Associated angina: without angina Qualified Code(s): I25.10 - Atherosclerotic heart disease of [place] coronary artery without angina pectoris (6) ROBERT (acute kidney injury) Code(s): N17.9 - ACUTE KIDNEY FAILURE, UNSPECIFIED Status: Acute Comment: resolving.. - Plan * .
[2017-05-03] MEDS ORDERED: Vancomycin HCl 500 MG in Sodium Chloride 0.9% 100 ML IVPB SCH (14:00)
--- NOTE | 2017-05-03 17:46 | CON ---
DATE OF CONSULTATION: 05/03/2017 REASON FOR CONSULTATION: Positive blood cultures. HISTORY OF PRESENT ILLNESS: A 76-year-old history of COPD, having discontinued smoking 10 years ago who was admitted with a gluteal abscess. She had a limit I and D at the emergency room and the area was packed and she was a little bit hypotensive on arrival; and therefore, she was admitted, had no fever or chills. No headaches or visual symptoms. No sore throat, odynophagia, dysphagia, having her usual chronic cough, but not different than before. She has chronic dyspnea and has oxygen at home, but no different than prior baseline status. No diarrhea. No genitourinary symptoms. PAST MEDICAL HISTORY: Severe chronic obstructive pulmonary disease, on home O2 , also systolic CHF with EF 15-20%, history of coronary artery disease with prior angioplasty and stenting, hypertension, prior TIA. PAST SURGICAL HISTORY: Cataract, tubal ligation, cardiac catheterization and stenting. SOCIAL HISTORY: Lives in [place]. Quit smoking more than 10 years ago. She is pretty independent. FAMILY HISTORY: Hypertension and coronary artery disease. ALLERGIES: PENICILLIN, ROCEPHIN, and TRAMADOL. MEDICATIONS: Currently, she is on Maalox, DuoNeb, aspirin, Lipitor, clindamycin , enoxaparin and vancomycin. PHYSICAL EXAMINATION: VITAL SIGNS: The patient has been afebrile in the hospital stay and BP 130/46, pulse 89, respirations 18, and O2 saturation 99%. GENERAL: Appears in no distress, a little bit labored breathing, oriented and alert, pleasant. SKIN EXAM: Shows the gluteal abscess, left side which is packed the rim of the erythema measures about 3 cm with a central open wound. There is some induration, but not large. No lymphadenopathy. HEENT: Ocular movements are conjugate, little bit of periorbital edema. No robinson teeth left. Oral mucosa normal. NECK: Supple. LUNGS: Symmetric air entry, diminished breath sounds. No wheezing. No crackles. HEART: S1, S2, regular rate. Diminished heart sounds. ABDOMEN: Soft. Not distended. No bladder distention. EXTREMITIES: No joint inflammatory activity. No edema. Pulses are 1+ in dorsalis pedis. Plantar responses are flexure. Moves all extremities equally. NEUROLOGIC: Cognitive function appears to be intact. LABORATORY DATA: Sodium 134 and 139, creatinine is down to 1.33. Liver profile normal. White cell count was 15, now down to 8.8 and 12.6, platelet count 229,000. Urinalysis was essentially normal. Microbiology with MRSA from the gluteal area abscess resistant to clindamycin, susceptible to vancomycin, tetracycline, rifampin and Bactrim. She has a positive cultures from the external jugular vein access that was present and this showed positive for coagulase-negative staph, other than Staph epi and S. lugdunensis. ASSESSMENT: 1. Chronic obstructive pulmonary disease with decompensation and cardiomyopathy. 2. Bacteremia likely due to contamination of the sample in view of the nature of the organisms and Methicillin-resistant Staphylococcus aureus abscess gluteal area. DISCUSSION: I do not believe that there is evidence to suggest an invasive process at this time other than that the limited skin level and would recommend discharge planning with doxycycline and Bactrim; after I and D that was accomplished. MTDD
[2017-05-03] MEDS: Doxycycline 100 MG CAP PO SCH (21:05)
[2017-05-03] MEDS: Atorvastatin Calcium 40 MG TAB PO SCH (21:05)
[2017-05-03] MEDS: Rifampin 300 MG CAP PO SCH (21:05)
--- NOTE | 2017-05-03 23:57 | DIS ---
DATE OF ADMISSION: 05/01/2017 DATE OF DISCHARGE: 05/03/2017 ADMITTING DIAGNOSES: Sepsis, hypotension, hyperkalemia, buttock abscess, chronic obstructive lung d isease, history of coronary artery disease, dementia, dyslipidemia, and anemia. DISCHARGE DIAGNOSES: Sepsis, hypotension, hyperkalemia, buttock abscess, chronic obstructive lung d isease, history of coronary artery disease, dementia, dyslipidemia, and anemia. CONSULTANTS: Dr. Crowley, Dr. Rosario Garcia, and Dr. Cornelia Munguia. PROCEDURES: Chest x-ray, IV administration of antibiotics incision and drainage of buttock ab scess, echocardiogram. COURSE OF HOSPITALIZATION: Uncomplicated, responded well to management. Patient is clinically stab le at this time, being discharged home. DISCHARGE MEDICATIONS: Please see discharge medication reconciliation sheet. Patient is to follow up with the workers compensation consultant and also with her primary care physician. For today's physical examination, please refer to patient's medical record progress note section. DISCHARGE TIME: Thirty-two minutes.
[2017-05-04 07:47] VITALS: TEMP 98.3
[2017-05-04] MEDS: Enoxaparin Sodium 30 MG/0.3 ML SYRINGE SC SCH (07:47)
[2017-05-04] MEDS: Cyanocobalamin (Vitamin B-12) 1,000 MCG TAB PO SCH (07:48)
[2017-05-04] MEDS: Folic Acid 1 MG TAB PO SCH (07:48)
[2017-05-04] MEDS: Famotidine 20 MG TAB PO SCH (07:48)
[2017-05-04] MEDS: Clopidogrel Bisulfate 75 MG TAB PO SCH (07:49)
[2017-05-04] MEDS: Ferrous Sulfate 325 MG TAB PO SCH (07:49)
[2017-05-04] MEDS: Sodium Chloride 0.9% 1,000 ML IV SCH (07:50)
[2017-05-04] MEDS: Mometasone/Formoterol 120 PUFF INHALER INH SCH (08:28)
[2017-05-04] MEDS: Rifampin 300 MG CAP PO SCH (10:11)
[2017-05-04] MEDS: Doxycycline 100 MG CAP PO SCH (10:11)
--- NOTE | 2017-05-04 11:54 | PDOC.EVN ---
Event Note - Event Note Event Note: discharge summary date changed to today for 05/04/2017 patient held an extra day due to home health care arrangements DC summary change number [id number]
[2017-05-04 12:40] VITALS: BP 137/72
--- NOTE | 2017-05-04 15:33 | PRG ---
DATE OF SERVICE: 05/04/2017 SUBJECTIVE: Ms. Rose is awake, alert, responsive. She wants to go home. PHYSICAL EXAMINATION: VITAL SIGNS: Temperature 97, pulse 107, respirations 18, blood pressure 120/70. CHEST: No shortness of breath, cough or wheezing. is growing MRSA. IMPRESSION: Respiratory failure, methicillin-resistant Staphylococcus aureus wound infection, chron ic obstructive pulmonary disease. PLAN: She is n.p.o. vibramycin, neb treatments, supportive care. She can be discharged home if she is okay with Infectious Disease. Follow up with Dr. Dunn.
--- NOTE | 2017-05-04 17:09 | PRG ---
DATE OF SERVICE: 05/04/2017 NEPHROLOGY PROGRESS NOTE SUBJECTIVE: Patient was seen and examined at bedside and overnight events noted. Patient denies an y shortness of breath or chest pain or palpitation. No history of nausea or vomiting or diarrhea or fever or chills or cramps. OBJECTIVE: GENERAL: This is a well-built female in no apparent distress. VITAL SIGNS: Temperature 98.3, pulse 107, respiratory rate 18, blood pressure 150/70. HEENT: Atraumatic, normocephalic. Oral mucosa is moist. NECK: Supple. CARDIOVASCULAR: S1 and S2 heard, rate and rhythm regular. RESPIRATORY: Clear to auscultation. GASTROINTESTINAL: Abdomen is soft. MUSCULOSKELETAL: No tenderness, no edema. DERMATOLOGIC: No skin rash. NEUROLOGIC: Alert and awake and oriented X3. No focal neurologic deficits. Moving all the extremi ties. PSYCHIATRIC: Mood and affect normal. LABORATORY DATA: No labs are done today. ASSESSMENT AND PLAN: 1. Acute kidney injury which is better. 2. Hyperkalemia, limit potassium. 3. Anemia. 4. Edema, controlled. 5. Hypertension, stable. 6. Patient was advised to follow up with the clinic in 1-2 weeks. Limit potassium and follow up as outpatient.
--- NOTE | 2017-05-04 18:16 | ADD-DIS ---
DATE OF ADMISSION: 05/01/2017 DATE OF DISCHARGE: 05/04/2017 ADDENDUM Discharge summary has already been dictated. [facility] Patient's discharge date is 05/04/2017, otherwise, rest of the discharge summary remains th e same.
== END 2017-05-04 12:11 | disposition home health service (06) | DRG 871 ==
LOC: ERS 10:49 → IMCU/EMU 13:36
PROVIDERS: ADMIT Internal Medicine; ATTEND Internal Medicine
PROC: 0Y900ZZ Drainage of Right Buttock, Open Approach (ICD-10-PCS; principal; 2017-05-01)
DX: A41.02 Sepsis due to Methicillin resistant Staphylococcus aureus (principal); J96.21 Acute and chronic respiratory failure with hypoxia; N17.9 Acute kidney failure, unspecified; L89.310 Pressure ulcer of right buttock, unstageable; I11.0 Hypertensive heart disease with heart failure; I42.9 Cardiomyopathy, unspecified; I50.22 Chronic systolic (congestive) heart failure; E44.1 Mild protein-calorie malnutrition; E87.1 Hypo-osmolality and hyponatremia; Z99.81 Dependence on supplemental oxygen; L02.31 Cutaneous abscess of buttock; L03.317 Cellulitis of buttock; R65.20 Severe sepsis without septic shock; B95.62 Methicillin resistant Staphylococcus aureus infection as the cause of diseases classified elsewhere; J44.9 Chronic obstructive pulmonary disease, unspecified; Z86.73 Personal history of transient ischemic attack (TIA), and cerebral infarction without residual deficits; Z98.49 Cataract extraction status, unspecified eye; Z98.51 Tubal ligation status; Z95.5 Presence of coronary angioplasty implant and graft; Z66 Do not resuscitate; Z87.891 Personal history of nicotine dependence; Z88.0 Allergy status to penicillin; Z88.1 Allergy status to other antibiotic agents; Z88.5 Allergy status to narcotic agent; L02.32 Furuncle of buttock; E86.9 Volume depletion, unspecified; E87.5 Hyperkalemia; I25.10 Atherosclerotic heart disease of native coronary artery without angina pectoris; G30.9 Alzheimer's disease, unspecified; F02.80 Dementia in other diseases classified elsewhere, unspecified severity, without behavioral disturbance, psychotic disturbance, mood disturbance, and anxiety; E78.5 Hyperlipidemia, unspecified; D64.9 Anemia, unspecified; Z68.23 Body mass index [BMI] 23.0-23.9, adult
CPT/HCPCS: 10060; 36415; 71010; 76770; 80048; 80053; 81001; 82533; 82570; 82728; 83540; 83550; 83605; 83690; 83735; 84156; 84300; 85025; 87040; 87070; 87077; 87086; 87149; 87186; 87205; 93306; 94640; 96360; 96361; 96365; 96367; G8978-GP-CJ; G8979-GP-CI; J2001; J3370; J3490; J7050

== ENCOUNTER 2017-05-20 13:04 | Emergency (ER) | payer MEDICARE ==
[2017-05-20 13:35] LABS: #Eosinphils 0.1 thou/uL (0.0-0.7); #Lymphocytes 1.4 thou/uL (1.20-3.40); #Monocytes 0.9 thou/uL (0.11-0.59); #Neutrophils 7.6 thou/uL (1.40-6.50); %Basophils 0.4 % (0.0-1.0); %Eosinophils 1.1 % (0.0-10.0); %Lymphocytes 14.2 % (21.0-51.0); %Monocytes 8.8 % (0.0-10.0); Hematocrit 33.9 % (36.0-47.0); Mean Platelet Volume 8.1 fL (7.4-10.4); Red Blood Cell (RBC) Count 3.53 mill/uL (4.20-5.40); White Blood Cell (WBC) Count 10.1 thou/uL (4.8-10.8)
[2017-05-20 13:57] LABS: ALT (SGPT) 8 U/L (8-55); AST (SGOT) 13 U/L (5-34); Alkaline Phosphatase 57 U/L (40-150); Anion Gap 13 mmol/L (10-20); BUN (Urea Nitrogen) 26 mg/dL (9.8-20.1); Bilirubin, Total 0.3 mg/dL (0.2-1.2); CK (CPK) 58 U/L (29-168); Calc. Creatinine Clearance 0 mL/min (70-130); Calcium 9.5 mg/dL (7.8-10.44); Carbon Dioxide 30 mmol/L (23-31); Chloride 102 mmol/L (98-107); Estimated GFR-MDRD 43; Globulin 3.1 g/dL (2.4-3.5); Protein, Total 6.6 g/dL (6.0-8.3)
[2017-05-20 14:03] LABS: Troponin I 0.013 ng/mL (< 0.028)
== END 2017-05-20 15:40 | disposition home or self-care (01) ==
LOC: ERS 13:04
DX: R00.0 Tachycardia, unspecified (principal); F03.90 Unspecified dementia, unspecified severity, without behavioral disturbance, psychotic disturbance, mood disturbance, and anxiety; I25.10 Atherosclerotic heart disease of native coronary artery without angina pectoris; I10 Essential (primary) hypertension; J43.9 Emphysema, unspecified; Z86.73 Personal history of transient ischemic attack (TIA), and cerebral infarction without residual deficits; Z87.891 Personal history of nicotine dependence; Z79.82 Long term (current) use of aspirin; Z79.899 Other long term (current) drug therapy
CPT/HCPCS: 36415; 80053; 82550; 82553; 84484; 85025; 93005; 94760

== ENCOUNTER 2017-12-17 10:25 | Emergency (ER) | payer MEDICARE ==
[2017-12-17] MEDS ORDERED: Water For Inject, Bacteriostat 30 ML ONE (11:10)
[2017-12-17] MEDS ORDERED: methylPREDNISolone Sod Succ/PF 125 MG/2 ML VIAL ONE (11:10)
[2017-12-17 11:19] LABS: #Basophils 0.1 thou/uL (0.0-0.2); #Lymphocytes 1.1 thou/uL (1.20-3.40); #Monocytes 1.2 thou/uL (0.11-0.59); #Neutrophils 8.7 thou/uL (1.40-6.50); %Basophils 1.3 % (0.0-1.0); %Eosinophils 0.3 % (0.0-10.0); %Lymphocytes 9.7 % (21.0-51.0); %Monocytes 10.6 % (0.0-10.0); Mean Corpuscular HGB CONC 32.7 g/dL (32.0-36.0); Mean Corpuscular Hemoglobin 28.9 pg (27.0-31.0); Mean Corpuscular Volume 88.4 fl (81.0-99.0); Mean Platelet Volume 8.6 fL (7.4-10.4); Platelet Count 178 thou/uL (130-400); RBC Distribution Width 14.3 % (11.5-14.5); Red Blood Cell (RBC) Count 3.79 mill/uL (4.20-5.40); White Blood Cell (WBC) Count 11.1 thou/uL (4.8-10.8)
--- NOTE | 2017-12-17 11:35 | RAD ---
SINGLE VIEW OF THE CHEST: COMPARISON: 05/01/17. HISTORY: Shortness of breath. FINDINGS: A single view of the chest shows a normal size cardiomediastinal silhouette with atherosclerotic calc ifications in the aorta. There is no evidence of consolidation, mass, or pleural effusion. Degenera tive changes are seen in the spine. There is a remote right femoral fracture. IMPRESSION: 1. No evidence of acute cardiopulmonary disease. 2. Atherosclerotic disease. POS: [facility]
[2017-12-17 11:52] LABS: ALT (SGPT) 9 U/L (8-55); AST (SGOT) 11 U/L (5-34); Albumin 3.3 g/dL (3.4-4.8); Alkaline Phosphatase 73 U/L (40-150); Anion Gap 10 mmol/L (10-20); BUN (Urea Nitrogen) 28 mg/dL (9.8-20.1); Bilirubin, Total 0.5 mg/dL (0.2-1.2); CK (CPK) 37 U/L (29-168); CKMB 2.9 ng/mL (0-6.6); Calc. Creatinine Clearance 0 mL/min (70-130); Carbon Dioxide 35 mmol/L (23-31); Chloride 102 mmol/L (98-107); Estimated GFR-MDRD 71; Globulin 2.7 g/dL (2.4-3.5); Glucose 93 mg/dL (83-110); Potassium 3.7 mmol/L (3.5-5.1); Sodium 143 mmol/L (136-145); Troponin I Less than 0.010 ng/mL (< 0.028)
== END 2017-12-17 13:49 | disposition home or self-care (01) ==
LOC: ERS 10:25
DX: J45.901 Unspecified asthma with (acute) exacerbation (principal); F03.90 Unspecified dementia, unspecified severity, without behavioral disturbance, psychotic disturbance, mood disturbance, and anxiety; I25.10 Atherosclerotic heart disease of native coronary artery without angina pectoris; I10 Essential (primary) hypertension; Z86.73 Personal history of transient ischemic attack (TIA), and cerebral infarction without residual deficits; J44.9 Chronic obstructive pulmonary disease, unspecified; Z87.891 Personal history of nicotine dependence; Z79.899 Other long term (current) drug therapy; Z79.82 Long term (current) use of aspirin
CPT/HCPCS: 36415; 71045; 80053; 82550; 82553; 83605; 83880; 84484; 85025; 93005; 94760; 96374; J2930